=== PATIENT | female | born 1950 | race Two or more races ===

== ENCOUNTER 2020-01-19 08:52 | Inpatient (IN) | payer OTHER, MEDICAID ==
[~2020-01-19] VITALS: Ht 165.1 cm; Wt 82.6 kg
[2020-01-19 09:53] LABS: Basophils # (auto) 0.1 10 ^3/uL (0-0.2); Basophils % (auto) 0.5 % (0.0-2.0); Eosinophils # (auto) 0 10 ^3/uL (0-0.8); Eosinophils % (auto) 0.1 % (0.0-7.0); Hematocrit 43.4 % (36.0-46.0); Hemoglobin 14.2 g/dL (12.2-16.2); Lymphocytes # (auto) 0.7 10 ^3/uL (0.4-5.4); Lymphocytes % (auto) 6.2 % (10.0-50.0); Mean Corpuscular Hemoglobin 29.7 pg (28.0-32.0); Mean Corpuscular Hgb Conc. 32.7 g/dL (32.0-36.0); Mean Corpuscular Volume 90.8 fL (80.0-100.0); Monocytes # (auto) 0.5 10 ^3/uL (0-1.3); Monocytes % (auto) 4.4 % (0.0-12.0); Neutrophils % (auto) 88.8 % (37.0-80.0); Nucleated Red Blood Cells % 0.1 %; Platelet Count (auto) 137 10^3/uL (140-450); Red Blood Cells 4.78 10^6/uL (4.0-5.20); Red Cell Distribution Width 13.9 % (11.8-14.3); White Blood Cell 11.3 10^3/uL (4.4-10.8)
[2020-01-19] MEDS ORDERED: cefTRIAXone 1GM/50ML D5W 50 ML IV ONE (10:15)
[2020-01-19 10:20] LABS: Urine Bacteria NONE SEEN /hpf (None Seen); Urine Blood Negative /uL (Negative); Urine Specific Gravity 1.008 (1.001-1.035); Urine WBC 1 /hpf (0 - 5)
[2020-01-19 10:24] LABS: Albumin 4.2 g/dL (3.4-5.0); Anion Gap 5 (5-15); Blood Urea Nitrogen 5 mg/dL (7-18); Calcium 9.3 mg/dL (8.5-10.1); Carbon Dioxide 30 mmol/L (21-32); Chloride 103 mmol/L (98-107); Glucose 120 mg/dL (74-106); Potassium 3.1 mmol/L (3.5-5.1); Sodium 138 mmol/L (136-145)
[2020-01-19 10:29] LABS: Alcohol, Urine < 3.0 mg/dL (0-10); Amphetamine Screen, Urine NEGATIVE (NEGATIVE); Barbiturate Scree,Urine POSITIVE (NEGATIVE); Benzodiazephine Screen, Urine NEGATIVE (NEGATIVE); Cannabinoid Screen, Urine NEGATIVE (NEGATIVE); Cocaine Screen, Urine NEGATIVE (NEGATIVE); Opiate Scree,Urine NEGATIVE (NEGATIVE); Phencyclidine Screen, Urine NEGATIVE (NEGATIVE)
[2020-01-19 10:31] LABS: Alanine Aminotransferase 20 U/L (13-56); Alkaline Phosphatase 144 U/L (45-117); Aspartate Aminotransferase 23 U/L (15-37); BUN/Creatinine Ratio 6.7; Bilirubin, Total 0.4 mg/dL (0.2-1.0); Blood Alcohol < 3.0 mg/dL (0-5); GFR African American 98 mL/min; GFR Non-African American 81 mL/min; Total Protein 7.8 g/dL (6.4-8.2)
[2020-01-19 10:56] LABS: INR 1.02 (0.9-1.15); Partial Thromboplastin Time < 20.0 sec (23.0-31.2)
[2020-01-19] MEDS ORDERED: SODIUM CHLORIDE 0.9% 1,000 ML IV SCH (10:59)
[2020-01-19] MEDS ORDERED: ALUM & MAG HYDROX-SIMETH LIQ(MAALOX) 30 ML PO PRN (11:00)
[2020-01-19] MEDS ORDERED: LORazepam 0.5 MG TAB PO PRN (11:00)
[2020-01-19] MEDS ORDERED: DOCUSATE SOD 100 MG CAP PO PRN (11:00)
[2020-01-19] MEDS ORDERED: FUROSEMIDE 100 MG/10ML VIAL IV ONE (11:00)
[2020-01-19] MEDS ORDERED: NITROGLYCERIN 0.4 MG SL TAB SL PRN (11:00)
[2020-01-19] MEDS ORDERED: HYDROcodone-ACET 5/325MG TAB PO PRN (11:00)
[2020-01-19] MEDS ORDERED: ONDANSETRON HCL 4 MG/2 ML VIAL IV PRN (11:00)
[2020-01-19] MEDS ORDERED: ACETAMINOPHEN 325 MG TAB PO PRN (11:00)
[2020-01-19] MEDS ORDERED: hydrALAZINE HCL 20 MG/ML VL IV PRN (11:00)
[2020-01-19] MEDS ORDERED: MORPHINE SULF INJ 2 MG/ML SYRINGE 1ML IV PRN ×2 (11:00)
[2020-01-19 11:05] LABS: Lactic Acid w/Reflex 4.6 mmol/L (0.4-2.0)
[2020-01-19] MEDS ORDERED: ENOXAPARIN SOD 40 MG/0.4 ML SYRINGE SC ONE (11:15)
[2020-01-19] MEDS ORDERED: FUROSEMIDE 40 MG/4 ML VIAL IV ONE (11:15)
[2020-01-19] MEDS ORDERED: AZITHROMYCIN 500MG/ 250ML 250 ML IV ONE (11:15)
[2020-01-19] MEDS ORDERED: POTASSIUM CHLORIDE 40 MEQ, LIDOCAINE 1% (LOCAL ANESTH.) 4 ML in SODIUM CHL 0.9% 100 ML IV ONE (11:30)
[2020-01-19] MEDS ORDERED: ASPirin 81 mg TAB PO ONE (11:30)
[2020-01-19] MEDS ORDERED: POTASSIUM CHL 20 Meq TABLET PO ONE (12:00)
[2020-01-19] MEDS ORDERED: POTASSIUM CHL 20MEQ/100ML 100 ML IV ONE (12:00)
[2020-01-19] MEDS ORDERED: ATEN50TA PO (12:03)
[2020-01-19] MEDS ORDERED: CHOL500023 PO (12:03)
[2020-01-19] MEDS ORDERED: AMLO10TA13 PO (12:03)
[2020-01-19] MEDS ORDERED: PANT40TA2 PO (12:03)
[2020-01-19] MEDS ORDERED: BUTACC PO (12:03)
[2020-01-19] MEDS ORDERED: CLON0.2T PO (12:03)
[2020-01-19] MEDS ORDERED: VALP250C3 PO (12:03)
[2020-01-19] MEDS ORDERED: LOVA20TA4 PO (12:03)
[2020-01-19] MEDS ORDERED: FLUO-125 PO (12:03)
[2020-01-19] MEDS ORDERED: CALC-371 PO (12:05)
[2020-01-19] MEDS ORDERED: MAGNESIUM SULFATE 1GM/100ML 100 ML IV ONE (12:15)
[2020-01-19] MEDS ORDERED: LACTATED RINGER'S 1,000 ML IV ONE (12:15)
[2020-01-19] MEDS ORDERED: LOSARTAN POTASSIUM 50 MG TAB PO ONE (12:15)
[2020-01-19] MEDS ORDERED: FAMOTIDINE 20 MG TAB PO ONE (12:15)
[2020-01-19] MEDS ORDERED: LORazepam 2MG/ML-1ML VIAL IV ONE (12:45)
[2020-01-19] MEDS ORDERED: hydrALAZINE HCL 20 MG/ML VL IV ONE ×2 (17:15→23:00)
[2020-01-19] MEDS ORDERED: PANTOPRAZOLE 40 MG/10 ML VIAL INJ IV ONE ×3 (17:48→23:00)
[2020-01-19] MEDS ORDERED: FUROSEMIDE 40 MG/4 ML VIAL IV SCH (18:00)
[2020-01-19] MEDS ORDERED: ENALAPRILAT 1.25 MG/ML-1ML VIAL IV ONE (20:45)
[2020-01-19 20:55] LABS: Cholesterol 188 mg/dL (< 200); HDL Cholesterol 67 mg/dL (40-59); Triglycerides 106 mg/dL (< 150)
[2020-01-19 20:56] LABS: LDL Cholesterol 107 mg/dL (< 100)
[2020-01-19] MEDS ORDERED: ATORVASTATIN 20 MG TAB PO SCH (22:00)
[2020-01-19] MEDS ORDERED: MAGNESIUM OXIDE 400 MG TAB PO SCH (22:00)
[2020-01-19] MEDS ORDERED: FAMOTIDINE 20 MG TAB PO SCH (22:00)
[2020-01-19] MEDS ORDERED: METOPROLOL TARTRATE 25 MG TAB PO SCH (22:00)
[2020-01-19] MEDS ORDERED: SUCCINYLCHOLINE CHLORIDE 20 MG/ML 10ML VIAL IV ONE (22:09)
[2020-01-19] MEDS ORDERED: MANNITOL 20 % (20GM/100ML) 500 ML IV ONE (22:09)
[2020-01-19] MEDS ORDERED: ETOMIDATE (2MG/ML) 20ML VIAL IV ONE (22:09)
[2020-01-19] MEDS ORDERED: DexAMETHasone SOD PHOS 10MG/1ML VIAL INJ ONE (22:09)
[2020-01-19 22:20] VITALS: BP 151/66
[2020-01-19] MEDS ORDERED: hydrALAZINE HCL 20 MG/ML VL ONE (22:38)
[2020-01-19] MEDS ORDERED: DexAMETHasone SOD PHOS 10MG/1ML VIAL INJ IV ONE (23:00)
[2020-01-19] MEDS ORDERED: MANNITOL 20% SOLN 100 gm/500ml 250 ML IV ONE (23:00)
[2020-01-19] MEDS ORDERED: PROTAMINE SULFATE 10 MG/ML 5ML VIAL IV ONE ×2 (23:15→23:28)
[2020-01-19] MEDS ORDERED: VALPROATE INJ 500 MG in SODIUM CHL 0.9% 100 ML IV ONE (23:45)
[2020-01-19] MEDS ORDERED: levETIRAcetam 500 MG/5ML INJ IV ONE (23:59)
[2020-01-20] MEDS ORDERED: SUCCINYLCHOLINE CHLORIDE 20 MG/ML 10ML VIAL IV ONE
[2020-01-20] MEDS ORDERED: ETOMIDATE (2MG/ML) 20ML VIAL IV ONE
[2020-01-20 00:15] VITALS: BP 110/50
[2020-01-20] MEDS ORDERED: cefTRIAXone 1GM/50ML D5W 50 ML IV SCH (09:00)
[2020-01-20] MEDS ORDERED: POTASSIUM CHL 20 Meq TABLET PO SCH (10:00)
[2020-01-20] MEDS ORDERED: VALPROATE INJ 500 MG in SODIUM CHL 0.9% 100 ML IV SCH (10:00)
[2020-01-20] MEDS ORDERED: ENOXAPARIN SOD 40 MG/0.4 ML SYRINGE SC SCH (10:00)
[2020-01-20] MEDS ORDERED: ASPirin 81 mg TAB PO SCH (10:00)
[2020-01-20] MEDS ORDERED: AZITHROMYCIN 500MG/ 250ML 250 ML IV SCH (10:00)
[2020-01-20] MEDS ORDERED: FLUoxetine HCL 20 MG CAP PO SCH (10:00)
[2020-01-20] MEDS ORDERED: LOSARTAN POTASSIUM 50 MG TAB PO SCH (10:00)
== END 2020-01-20 00:58 | disposition short-term general hospital (02) | DRG 64 ==
LOC: EDBD 08:52 → ER 08:52 → TELE 08:53
PROVIDERS: ADMIT Hospitalist; ATTEND Hospitalist
PROC: 5A1935Z Respiratory Ventilation, Less than 24 Consecutive Hours (ICD-10-PCS; principal; 2020-01-19)
PROC: 0BH17EZ Insertion of Endotracheal Airway into Trachea, Via Natural or Artificial Opening (ICD-10-PCS; 2020-01-19)
DX: I61.5 Nontraumatic intracerebral hemorrhage, intraventricular (principal); G93.41 Metabolic encephalopathy; I50.23 Acute on chronic systolic (congestive) heart failure; J15.9 Unspecified bacterial pneumonia; K29.71 Gastritis, unspecified, with bleeding; J84.9 Interstitial pulmonary disease, unspecified; I69.351 Hemiplegia and hemiparesis following cerebral infarction affecting right dominant side; E66.9 Obesity, unspecified; E87.6 Hypokalemia; F39 Unspecified mood [affective] disorder; F41.9 Anxiety disorder, unspecified; G40.909 Epilepsy, unspecified, not intractable, without status epilepticus; G43.909 Migraine, unspecified, not intractable, without status migrainosus; I11.0 Hypertensive heart disease with heart failure; I48.91 Unspecified atrial fibrillation; K21.9 Gastro-esophageal reflux disease without esophagitis; Z20.828 Contact with and (suspected) exposure to other viral communicable diseases; Z82.3 Family history of stroke; Z82.49 Family history of ischemic heart disease and other diseases of the circulatory system; Z79.899 Other long term (current) drug therapy; Z68.30 Body mass index [BMI] 30.0-30.9, adult
CPT/HCPCS: 36415; 36600; 51702; 70450; 71045; 80053; 80061; 80307; 80320; 81001; 82728; 82805; 83036; 83605; 83615; 83735; 83880; 84484; 85025; 85610; 85730; 86141; 87040; 87070; 87086; 87205; 93005; 94002; 96365; 96368; 96372; 96375; 96376; 99291; C9113; G0378; J0330; J0696; J1100; J2001; J7060